=== PATIENT | female | born 1990 | race Caucasian/White ===

== ENCOUNTER 2017-02-13 13:08 | Emergency (ER) | payer OTHER ==
[2017-02-13] MEDS ORDERED: LORazepam 0.5 MG TABLET PO STA (14:42)
[2017-02-13] MEDS ORDERED: LORazepam 0.5 MG TABLET ONE (14:55)
[2017-02-13] MEDS ORDERED: HYDROcod/ACETAM 5/325 MG TABLET PO STA (15:20)
--- NOTE | 2017-02-13 15:23 | ED Physician Documentation ---
History of Present Illness - Stated complaint Stated Complaint: DIZZINESS,MED WITHDRAWAL - Chief complaint Chief Complaint: General - History obtained from History obtained from: Patient (pt states tht for the past 5 days she has been out of her cymbalta that she take for fibromyalgia and anxiety.) - History of Present Illness Timing: Prior to arrival Review of Systems Constitutional: denies: Fever, Chills Cardiac: denies: Chest pain / pressure, Palpitations Respiratory: denies: Dyspnea, Cough GI: denies: Abdominal Pain, Nausea, Vomiting, Constipation, Diarrhea : denies: Dysuria, Frequency Skin: denies: Rash, Lesions Musculoskeletal: reports: Neck pain, Back pain, Extremity pain Neurologic: denies: Generalized weakness, Altered mental status, Headache Psychiatric: reports: Anxiety PD PAST MEDICAL HISTORY - Past Medical History Past Medical History: Yes Psych: Anxiety Musculoskeletal: Fibromyalgia - Past Surgical History Past Surgical History: Yes 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 No: No acute distress (mild distress) - HEENT HEENT: Atraumatic, Moist mucous membranes - Neck Neck: Supple, no meningeal sign - Cardiac Cardiac: RRR, No murmur - Respiratory Respiratory: No respiratory distress, Clear bilaterally - Abdomen Abdomen: Normal bowel sounds, Soft - Derm Derm: Normal color, Warm and dry, No rash - Neuro Neuro: Alert and oriented X 3 - Psych Psych: Other (anxiety) Results - Vitals Vitals: Vital Signs - 24 hr 02/13/17 13:13 Temperature 36.5 C Heart Rate 78 Respiratory 18 Rate Blood Pressure 126/87 H O2 Saturation 99 Oxygen O2 Source Room air PD MEDICAL DECISION MAKING - ED course Complexity details: d/w patient ED course: Pt with anxiety and no SI or HI. was given ativan in the ER which helped the anxiety. she states that her PCM refilled her cymbalta and she received a call from the pharmacy that states that her medication would be ready this PM. Pt was given return precautions. Departure - Departure Disposition: Home, Self Care Clinical Impression: Anxiety, Fibromyalgia Condition: Good Instructions: ED Stress React Follow-Up: Nelsy Calabrese ARNP [Primary Care Provider] - Comments: Take your medications as instructed. Return to the ER for any new or worsening symptoms
[2017-02-13 15:32] VITALS: BP 124/85
[2017-02-13] MEDS ORDERED: HYDROcod/ACETAM 5/325 MG TABLET ONE (15:32)
== END 2017-02-13 15:31 | disposition home or self-care (01) ==
LOC: ED 13:08
DX: F41.9 Anxiety disorder, unspecified (principal); M79.7 Fibromyalgia; F17.200 Nicotine dependence, unspecified, uncomplicated
CPT/HCPCS: 99283; A9270

== ENCOUNTER 2017-06-27 10:44 | Emergency (ER) | payer OTHER ==
[2017-06-27] MEDS ORDERED: HYDROmorphone 1 MG/ML CARPUJECT IM STA (12:15)
--- NOTE | 2017-06-27 12:17 | ED Physician Documentation ---
PD HPI LOWER EXT INJURY - Stated complaint Stated Complaint: R KNEE PX - Chief complaint Chief Complaint: Ext Problem - History obtained from History obtained from: Patient - History of Present Illness PD HPI LOW EXT INJURY LOCATION: Other (She is a rare condition where she gets soft tissue tumors in the right knee in his chronic knee pain with occasional locking. 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 She had an MRI on 's Day of this year but was at another facility. She was getting out of the shower today and felt a pop in the knee and now has severe anterior and internal right knee pain. 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, Other - Present Medications Home Medications: Ambulatory Orders Medication Instructions Recorded Confirmed Lorazepam [Ativan] 1 tab PO PRN PRN 06/27/17 06/27/17 Multivitamin-Min/Iron/FA/Vit K 1 tab PO DAILY 06/27/17 06/27/17 [Multi-Day Plus Minerals Tablet] Oxycodone HCl/Acetaminophen 1 - 2 tab PO Q4H PRN #15 tablet 06/27/17 [Percocet 5-325 mg Tablet] - Allergies Allergies/Adverse Reactions: Allergies Allergy/AdvReac Type Severity Reaction Status Date / Time No Known Drug Allergies Allergy Verified 06/27/17 11:01 - Social History Does the pt smoke?: Yes Smoking Status: Current every day smoker Does the pt drink ETOH?: Yes Does the pt have substance abuse?: No Substance Use and Type: Marijuana - Immunizations Immunizations are current?: Yes - POLST Patient has POLST: No PD ED PE NORMAL - Vitals Vital signs reviewed: Yes - General General: Alert and oriented X 3, Other (She seems uncomfortable) - Extremities Extremities: Other (The right knee is quite tender to the lateral joint line and posterior. There is no effusion. She has old arthroscopic anterior scars. She does not have obvious ACL or PCL laxity, because of pain I am unable to do grind testing or lateral ligament testing on either side.) - Neuro Neuro: Alert and oriented X 3, Normal speech Results - Vitals Vitals: Vital Signs - 24 hr 06/27/17 10:52 Temperature 36.8 C Heart Rate 94 Respiratory 15 Rate Blood Pressure 99/43 L O2 Saturation 99 Oxygen O2 Source Room air - Rads (name of study) r KNEE 4V Radiology: EMP read contemporaneously (Small effusion, otherwise normal) Departure - Departure Disposition: 01 Home, Self Care Clinical Impression: Internal derangement of right knee Condition: Good Record reviewed to determine appropriate education?: Yes Instructions: ED Effusion Knee Prescriptions: Oxycodone HCl/Acetaminophen [Percocet 5-325 mg Tablet] 1 - 2 tab PO Q4H PRN #15 tablet PRN Reason: Pain Comments: Follow through with the subspecialist referral as discussed, return if worse. Do not drink or drive while taking narcotic pain medication. Note that many narcotic pain relievers also contain Tylenol/acetaminophen. Please ensure that your total dose of acetaminophen from all sources does not exceed 3 g (3000 mg) per day. You may get constipated while on this medication. Take a stool softener such as Colace twice a day while you are on it. Also add an [id number] laxative such as senna or MiraLAX on any day that you do not have a bowel movement. If you received a narcotic pain medication or sedative while in the emergency department, do not drive for the next 24 hours.
--- NOTE | 2017-06-27 12:53 | XRAY Preliminary Report ---
Exam: XR KNEE 4 VIEW RT IMPRESSION: Trace joint effusion. [facility] SITE ID: [id number]
--- NOTE | 2017-06-27 12:54 | XRAY Report ---
EXAM: RIGHT KNEE RADIOGRAPHY EXAM DATE: 06/27/2017 12:46 PM. CLINICAL HISTORY: Knee pain. COMPARISON: None. TECHNIQUE: 4 views. FINDINGS: Bones: Normal. No fractures or bone lesions. Joints: Trace joint effusion. Soft Tissues: Normal. No soft tissue swelling. IMPRESSION: Trace joint effusion. [facility] Referring Provider Line: [phone] SITE ID: [id number]
[2017-06-27 13:16] VITALS: BP 119/60
== END 2017-06-27 13:21 | disposition home or self-care (01) ==
LOC: ED 10:44
DX: M23.8X1 Other internal derangements of right knee (principal); M79.7 Fibromyalgia; F17.200 Nicotine dependence, unspecified, uncomplicated
CPT/HCPCS: 73564; 96372; 99283; J1170

== ENCOUNTER 2017-08-08 01:00 | Outpatient (CLI) | payer OTHER | END 2017-08-08 01:01 | disposition critical access hospital (66) | LOC: EMS 01:00 | PROVIDERS: ATTEND Surgery | DX: R10.31 Right lower quadrant pain (principal) | CPT/HCPCS: A0425; A0427 ==

== ENCOUNTER 2017-08-08 01:25 | Emergency (ER) | payer OTHER ==
[2017-08-08 01:48] LABS: BILIRUBIN,URINE NEGATIVE (NEGATIVE); GLUCOSE, URINE (UA) NEGATIVE (NEGATIVE); KETONES,URINE (UA) NEGATIVE (NEGATIVE); LEUKOCYTE ESTERASE, URINE NEGATIVE (NEGATIVE); NITRITE,URINE NEGATIVE (NEGATIVE); OCCULT BLOOD,URINE NEGATIVE (NEGATIVE); PH,URINE 5.5 PH (5.0-7.5); PROTEIN,URINE NEGATIVE (NEGATIVE); UROBILINOGEN,URINE 0.2 (NORMAL) E.U./dL (NORMAL)
[2017-08-08 01:51] LABS: CLARITY,URINE CLEAR (CLEAR); HCG UR QUAL NEGATIVE
[2017-08-08] MEDS ORDERED: MORPHINE 10 MG/ML VIAL IVP STA ×2 (01:51→03:35)
[2017-08-08 01:55] LABS: BASOPHILS % (AUTO) 0.4 %; EOSINOPHILS # (AUTO) 0.2 10^3/uL (0.0-0.7); EOSINOPHILS % (AUTO) 2.1 %; HGB - HEMOGLOBIN 13.1 g/dL (12.0-16.0); LYMPHOCYTES % (AUTO) 17.9 %; MEAN CORPUSCULAR HEMOGLOBIN 28.5 pg (27.0-31.0); MEAN CORPUSCULAR HGB CONC 32.7 g/dL (32.0-36.0); MEAN CORPUSCULAR VOLUME 87.2 fL (81.0-99.0); MEAN PLATELET VOLUME 8.4 fL (7.9-10.8); MONOCYTES % (AUTO) 8.6 %; PLT - PLATELET COUNT 240 10^3/uL (130-450); RED BLOOD COUNT 4.61 10^6/uL (4.20-5.40); RED CELL DISTRIBUTION WIDTH 12.9 % (12.0-15.0); WHITE BLOOD COUNT 11.2 x10^3/uL (4.8-10.8)
[2017-08-08 02:09] LABS: ALBUMIN/GLOBULIN RATIO 1.4 (1.0-2.2); BILIRUBIN,TOTAL 0.7 mg/dL (0.2-1.0); CALCIUM 8.8 mg/dL (8.5-10.3); CREATININE 0.5 mg/dL (0.4-1.0); TOTAL PROTEIN 6.9 g/dL (6.7-8.2)
[2017-08-08] MEDS ORDERED: IOPAMIDOL-300 100 ML VIAL ONE (02:28)
[2017-08-08] MEDS ORDERED: IOPAMIDOL-300 100 ML VIAL IVP ONE (02:52)
[2017-08-08 03:06] VITALS: BP 91/45
--- NOTE | 2017-08-08 03:11 | ED Physician Documentation ---
PD HPI ABD PAIN - Stated complaint Stated Complaint: RLQ PAIN - Chief complaint Chief Complaint: Abd Pain - History obtained from History obtained from: Patient, EMS - History of Present Illness Timing - onset: Yesterday Timing - details: Gradual onset, Still present Quality: Cramping, Aching, Sharp Location: RLQ Worsened by: Eating, Palpation Associated symptoms: Nausea. No: Fever, Vomiting, Diarrhea, Constipation Similar symptoms before: Work up / diagnostics, Has not had sx before Recently seen: Not recently seen - Additional information Additional information: Patient is a 27 year old female who is presenting to the emergency department for abdominal pain. patient states that the pain started yesterday and it was in her right lower quadrant. patient reports that the pain has become progressively worse throughout the day so she called ems. Patient was treated with 100mcg of fentanyl enroute. Patient states that she a had a right sided ectopic in the past but she thinks she still has her right ovary. Review of Systems Constitutional: reports: Chills. denies: Fever GI: reports: Abdominal Pain, Nausea. denies: Vomiting, Constipation, Diarrhea : reports: Vaginal bleeding. 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 - Present Medications Home Medications: Ambulatory Orders Medication Instructions Recorded Confirmed Lorazepam [Ativan] 1 tab PO PRN PRN 06/27/17 06/27/17 Multivitamin-Min/Iron/FA/Vit K 1 tab PO DAILY 06/27/17 06/27/17 [Multi-Day Plus Minerals Tablet] Oxycodone HCl/Acetaminophen 1 - 2 tab PO Q4H PRN #15 tablet 06/27/17 [Percocet 5-325 mg Tablet] Ciprofloxacin HCl [Cipro] 500 mg PO BID #20 tablet 08/08/17 Metronidazole [Flagyl] 500 mg PO TID 10 Days tablet 08/08/17 Ondansetron Odt [Zofran] 4 mg TL Q6H PRN #20 tablet 08/08/17 Oxycodone HCl/Acetaminophen 1 - 2 each PO Q6H PRN #14 tablet 08/08/17 [Percocet 5-325 mg Tablet] - Allergies Allergies/Adverse Reactions: Allergies Allergy/AdvReac Type Severity Reaction Status Date / Time No Known Drug Allergies Allergy Verified 06/27/17 11:01 - Social History Does the pt smoke?: Yes Smoking Status: Current every day smoker Does the pt drink ETOH?: Yes Does the pt have substance abuse?: No - Immunizations Immunizations are current?: Yes - POLST Patient has POLST: No PD ED PE NORMAL - Vitals Vital signs reviewed: Yes - General General: Alert and oriented X 3 - HEENT HEENT: Atraumatic - Cardiac Cardiac: RRR - Respiratory Respiratory: No respiratory distress - Derm Derm: Normal color, Warm and dry - Extremities Extremities: No deformity - Neuro Neuro: Alert and oriented X 3 Eye Opening: Spontaneous PD ED PE EXPANDED - General General: Alert, In Pain - HEENT HEENT: Dry mucous membranes - Abdomen Abdomen: Tender to palpation, Guarding, RLQ. No: Rebound Results - Vitals Vitals: Vital Signs - 24 hr 08/08/17 08/08/17 08/08/17 01:20 02:36 02:50 Temperature 36.9 C Heart Rate 97 Respiratory 12 17 17 Rate Blood Pressure 121/67 O2 Saturation 98 08/08/17 08/08/17 08/08/17 02:54 03:04 04:24 Temperature Heart Rate 76 Respiratory 19 18 15 Rate Blood Pressure 91/45 L O2 Saturation 99 Oxygen O2 Source Room air - Labs Labs: Laboratory Tests 08/08/17 08/08/17 08/08/17 01:38 01:48 01:48 WBC 11.2 H RBC 4.61 Hgb 13.1 Hct 40.1 MCV 87.2 MCH 28.5 MCHC 32.7 RDW 12.9 Plt Count 240 MPV 8.4 Neut # 8.0 H Lymph # 2.0 [place] # 1.0 Eos # 0.2 Baso # 0.0 Absolute Nucleated RBC 0.00 Nucleated RBC % 0.0 Sodium 138 Potassium 3.9 Chloride 104 Carbon Dioxide 26 Anion Gap 8.0 BUN 17 Creatinine 0.5 Estimated GFR (MDRD) 147 Glucose 103 H Calcium 8.8 Total Bilirubin 0.7 AST 22 ALT 19 Alkaline Phosphatase 47 Total Protein 6.9 Albumin 4.0 Globulin 2.9 Albumin/Globulin Ratio 1.4 Lipase 12 L Urine Color YELLOW Urine Clarity CLEAR Urine pH 5.5 Ur Specific [place] 1.010 Urine Protein NEGATIVE Urine Glucose (UA) NEGATIVE Urine Ketones NEGATIVE Urine Occult Blood NEGATIVE Urine Nitrite NEGATIVE Urine Bilirubin NEGATIVE Urine Urobilinogen 0.2 (NORMAL) Ur Leukocyte Esterase NEGATIVE Ur Microscopic Review NOT INDICATED Urine Culture Comments NOT INDICATED Urine HCG, Qual NEGATIVE - Rads (name of study) ct abd pelvis Radiology: Final report received, See rad report (possible cecal diverticulitis , normal appendix) PD MEDICAL DECISION MAKING - ED course Complexity details: reviewed old records, reviewed results, re-evaluated patient , considered differential, d/w patient ED course: Patient was seen and examined at bedside. Urine was collected. IV access was gained and labs were drawn. Patient was not but did have a leukocytosis. Patient was treated with morphine and ns bolus. Patient was sent for imaging for possible appendicitis. When patient returned from imaging the results were reviewed. Patient was found to have diverticulitis. Patient was treated with additional pain medication, cipro and flagyl. Patient was given detailed discharge and follow up instructions. patient was able to tolerate PO, and was otherwise well appearing and was appropriate for a trial of outpatient antibiotics. Departure - Departure Disposition: 01 Home, Self Care Clinical Impression: Diverticulitis of gastrointestinal tract Condition: Good Instructions: ED Diverticulitis Follow-Up: Mica Paredes MD [Primary Care Provider] - Within 3 Days Prescriptions: Ciprofloxacin HCl [Cipro] 500 mg PO BID #20 tablet Metronidazole [Flagyl] 500 mg PO TID 10 Days tablet Ondansetron Odt [Zofran] 4 mg TL Q6H PRN #20 tablet PRN Reason: Nausea / Vomiting Oxycodone HCl/Acetaminophen [Percocet 5-325 mg Tablet] 1 - 2 each PO Q6H PRN # 14 tablet PRN Reason: pain Comments: Your symptoms today are being caused by diverticulitis. You were started on antibiotics today and you will need to be on them for the next 10 days. You cannot drink alcohol while taking the antibiotics. You will need to be on a clear liquid diet and slowly progress your diet to simple foods. You should follow up with your doctor on thursday. You should return to the emergency department for uncontrollable fevers, chills, vomiting, new worsening symptoms.
--- NOTE | 2017-08-08 03:26 | CT Report ---
EXAM: CT ABDOMEN AND PELVIS EXAM DATE: 08/08/2017 02:59 AM. CLINICAL HISTORY: Right lower quadrant pain and nausea. COMPARISONS: None. TECHNIQUE: Routine helical CT imaging was performed through the abdomen and pelvis. IV contrast: 100M L ISOVUE 300. Enteric contrast: No. Reconstructions: Coronal and sagittal. In accordance with CT protocol optimization, one or more of the following dose reduction techniques w ere utilized for this exam: automated exposure control, adjustment of mA and/or KV based on patient s ize, or use of iterative reconstructive technique. FINDINGS: Lung Bases: Unremarkable. Liver: No focal lesion identified. Gallbladder/Bile Ducts: Gallbladder is mildly enlarged at 10.5 cm. No calcified gallstones or obvious cholecystitis. Spleen: Normal. Pancreas: Normal. Adrenal Glands: Normal. Kidneys: Normal. No masses or hydronephrosis. Peritoneal Cavity/Bowel: Moderate stool in the colon. No bowel obstruction seen. Small amount of free fluid in the pelvis. No free air. Inflammatory changes at the lateral aspect of the cecum possibly r epresenting diverticulitis. No abscess seen. Appendix appears normal. Pelvic Organs: Normal. The bladder and visualized pelvic organs are within normal limits. Vasculature: No aneurysms or other significant abnormality. Bones: No significant abnormality. Other: None. IMPRESSION: 1. Appendix appears normal. 2. Inflammatory changes at the lateral aspect of the cecum possibly representing cecal diverticulitis . 3. No abscess seen. 4. Small amount of free fluid in the pelvis. 5. Moderate stool in the colon. 6. Mildly enlarged gallbladder without calcified gallstones or obvious cholecystitis. [facility] Referring Provider Line: [phone] SITE ID: [id number]
--- NOTE | 2017-08-08 03:26 | CT Preliminary Report ---
Exam: CT ABDOMEN/PELVIS W/ IMPRESSION: 1. Appendix appears normal. 2. Inflammatory changes at the lateral aspect of the cecum possibly representing cecal diverticulitis . 3. No abscess seen. 4. Small amount of free fluid in the pelvis. 5. Moderate stool in the colon. 6. Mildly enlarged gallbladder without calcified gallstones or obvious cholecystitis. [facility] SITE ID: [id number]
[2017-08-08] MEDS ORDERED: CIPROFLOXACIN 400 MG/200 ML 200 ML IV ONE (03:35)
[2017-08-08] MEDS ORDERED: metroNIDAZOLE 500 MG/100 ML 500 MG/100 ML BAG IV ONE (03:35)
== END 2017-08-08 05:51 | disposition home or self-care (01) ==
LOC: EDUNIT# → ED 01:25 → SUPCPDRO 01:25 → ED 05:51
DX: K57.32 Diverticulitis of large intestine without perforation or abscess without bleeding (principal); F17.200 Nicotine dependence, unspecified, uncomplicated
CPT/HCPCS: 36415; 74177; 80053; 81003; 81025; 83690; 85025; 96365; 96367; 96375; 96376; 99284; Q9967; 81001; 87086

== ENCOUNTER 2017-12-01 09:57 | Emergency (ER) | payer OTHER ==
--- NOTE | 2017-12-01 13:10 | Ultrasound Report ---
Reason: RLE swelling s/p knee surgery Procedure Date: 12/01/2017 Accession Number: [id number] / [id number] Procedure: US - Duplex Ext Veins Right CPT Code: FULL RESULT: EXAM: RIGHT LOWER EXTREMITY VENOUS ULTRASOUND EXAM DATE: 12/01/2017 12:57 PM. CLINICAL HISTORY: RLE swelling s/p knee surgery. COMPARISON: None. TECHNIQUE: Real-time sonographic vascular imaging was performed by the offset pressman through the lower extremity utilizing both color-flow and Doppler spectral analysis. Multiple membership sales representative static images were saved for review. FINDINGS: Right side Common Femoral Vein (CFV): Normal. CFV-GSV Junction: Normal. Profunda Femoral Vein (PFV): Normal. Femoral Vein (FV) Prox: Normal. Femoral Vein (FV) Mid: Normal. Femoral Vein (FV) Dist: Normal. Popliteal Vein: Normal. Posterior Tibial Veins: Normal. Peroneal Veins: Normal. Contralateral left common femoral vein: Normal. Other: None. IMPRESSION: No evidence for deep venous thrombosis right lower extremity. [facility]
--- NOTE | 2017-12-01 13:11 | ED Physician Documentation ---
PD HPI LOWER EXT INJURY - Stated complaint Stated Complaint: R SIDE LEG PX,SWELLING-POST SURGERY - Chief complaint Chief Complaint: General - History obtained from History obtained from: Patient - History of Present Illness PD HPI LOW EXT INJURY LOCATION: Right, Lower leg Type of injury: Twist. No: Fall Timing - onset: How many days ago (3) Timing - details: Gradual onset (noted onset of right calf pain 3 days ago and is increasing some. Had some twist of the ankle. Had knee surgery 2 months ago and called her Ortho who directed her to ER to get evaluation.) Improved by: Rest Worsened by: Moving, Palpating Associated symptoms: No: Weakness, Numbness, Swelling Contributing factors: Prior ortho surgery. No: Anticoagulated Similar symptoms before: Has not had sx before Recently seen: Not recently seen Review of Systems Constitutional: denies: Fever, Chills Cardiac: reports: Calf pain. 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, Other - Present Medications Home Medications: Ambulatory Orders Medication Instructions Recorded Confirmed Lorazepam [Ativan] 1 tab PO PRN PRN 06/27/17 06/27/17 Multivitamin-Min/Iron/FA/Vit K 1 tab PO DAILY 06/27/17 06/27/17 [Multi-Day Plus Minerals Tablet] Oxycodone HCl/Acetaminophen 1 - 2 tab PO Q4H PRN #15 tablet 06/27/17 [Percocet 5-325 mg Tablet] Ciprofloxacin HCl [Cipro] 500 mg PO BID #20 tablet 08/08/17 Metronidazole [Flagyl] 500 mg PO TID 10 Days tablet 08/08/17 Ondansetron Odt [Zofran] 4 mg TL Q6H PRN #20 tablet 08/08/17 Oxycodone HCl/Acetaminophen 1 - 2 each PO Q6H PRN #14 tablet 08/08/17 [Percocet 5-325 mg Tablet] Dexamethasone [Decadron] 4 mg PO DAILY #5 tablet 12/01/17 Tramadol HCl 50 mg PO Q6H PRN #15 tablet 12/01/17 - Allergies Allergies/Adverse Reactions: Allergies Allergy/AdvReac Type Severity Reaction Status Date / Time No Known Drug Allergies Allergy Verified 12/01/17 10:12 - Social History Does the pt smoke?: Yes Smoking Status: Current every day smoker Does the pt drink ETOH?: Yes Does the pt have substance abuse?: No - Immunizations Immunizations are current?: Yes - POLST Patient has POLST: No PD ED PE NORMAL - Vitals Vital signs reviewed: Yes - General General: Alert and oriented X 3, No acute distress, Well developed/nourished - Neck Neck: Supple, no meningeal sign, No adenopathy - Cardiac Cardiac: RRR, No murmur - Respiratory Respiratory: Clear bilaterally - Derm Derm: Normal color, Warm and dry - Extremities Extremities: Other (right ankle/lower lower leg with some anterior muscle tenderness. No effusion. No posterior pain per se. No skin rash nor sores. ) Results - Vitals Vitals: Oxygen O2 Source Room air - Rads (name of study) duplex right leg Radiology: Prelim report reviewed (no DVT) PD MEDICAL DECISION MAKING - ED course Complexity details: considered differential, d/w patient - Sepsis Event Vital Signs: Oxygen O2 Source Room air Departure - Departure Disposition: 01 Home, Self Care Clinical Impression: Pain of right lower extremity Clinical Impression: (Ruled Out): DVT (deep venous thrombosis) Condition: Stable Record reviewed to determine appropriate education?: Yes Instructions: ED Strain Muscle Ext Follow-Up: ADRIEN FUENTES PA-C [Primary Care Provider] - Prescriptions: Dexamethasone [Decadron] 4 mg PO DAILY #5 tablet Tramadol HCl 50 mg PO Q6H PRN #15 tablet PRN Reason: Pain Comments: No signs of blood clots on your ultrasound. Presume its muscular pain from increased activity now that you have been recovering a little bit more. Use some naproxen or ibuprofen 2-3 times a day. For your shortness of breath, use the albuterol inhaler 2 puffs 4 times a day for the next 7 days. Use Decadron steroid anti-inflammatory daily for 5 more days presuming some airway inflammation. Recheck if not improving over the next several days. If you have increasing pain, swelling, symptoms in your leg, the ultrasound came get repeated in a week or so. The accuracy of ultrasound is slightly lower in the lower calf area and so could miss 1 or 2% of early clots. These are not yet dangerous if that is the case and would have progressive symptoms. Discharge Date/Time: 12/01/17 14:06
[2017-12-01] MEDS ORDERED: DEXAMETHASONE 10 MG/ML VIAL PO STA (13:47)
[2017-12-01] MEDS ORDERED: ACETAMINOPHEN 325 MG TABLET PO STA (13:47)
[2017-12-01 14:07] VITALS: BP 97/51
== END 2017-12-01 14:06 | disposition home or self-care (01) ==
LOC: ED 09:57
DX: M79.661 Pain in right lower leg (principal); F17.200 Nicotine dependence, unspecified, uncomplicated
CPT/HCPCS: 93971; 99283; A9270